=== PATIENT | female | born 1945 | race Caucasian/White ===

== ENCOUNTER 2017-06-24 16:37 | Emergency (ER) | payer MEDICAID ==
[2017-06-24 16:52] VITALS: RESP 18; TEMP 98.1
[2017-06-24] MEDS ORDERED: Sodium Chloride 0.9% 1,000 ML IV ONE (17:09)
--- NOTE | 2017-06-24 17:30 | CT ---
PROCEDURE: CT HEAD WITHOUT CONTRAST. HISTORY: dizziness COMPARISON: None available. TECHNIQUE: Axial computed tomography images were obtained through the head/brain without intravenous contrast. Radiation dose: Total exam DLP = 839.54 mGy-cm. This CT exam was performed using one or more of the following dose reduction techniques: Automated exposure control, adjustment of the mA and/or kV according to patient size, and/or use of iterative reconstruction technique. FINDINGS: Evaluation of posterior fossa limited due to patient motion artifact. HEMORRHAGE: No intracranial hemorrhage. BRAIN: No mass effect or edema. Minimal atrophy less than expected for patient age. No evidence of acute infarct. VENTRICLES: Unremarkable. No hydrocephalus. CALVARIUM: Unremarkable. PARANASAL SINUSES: Unremarkable as visualized. No significant inflammatory changes. MASTOID AIR CELLS: Unremarkable as visualized. No inflammatory changes. OTHER FINDINGS: None. IMPRESSION: No intracranial mass, hemorrhage or evidence acute infarct.
--- NOTE | 2017-06-24 17:39 | C.PDOC ---
History Of Present Illness 71 year old female, with past medical history of diabetes, hypertension, presents to Emergency Department for evaluation of dizziness for the past 2 weeks, which is worse in the morning and upon standing. Notes that she felt dizzy this morning after returning home, states she did not check her sugar level today. Patient states that she "passed out" for unknown length of time, states she was sitting in a chair during the episode but is not able to recall any other events. As per family, patient was seen by neurologist yesterday and was told everything was normal, no new medications were given. Patient also complaints of occasional numbness and tingling sensation to finger digits and toes. Also complains of occasional epigastric abdominal pain radiating to the chest for the past 3 months. Denies shortness of breath, visual change, vomiting , diarrhea, fever, chills, or any other associated symptoms at this time. Patient states her PMD is "not helping me", and "I feel as if I will ." Time Seen by Provider: 06/24/17 16:56 Chief Complaint (Nursing): Syncope History Per: Patient History/Exam Limitations: no limitations Onset/Duration Of Symptoms: Days Current Symptoms Are (Timing): Still Present Recent travel outside of the [place]: No Additional History Per: Patient Past Medical History Reviewed: Historical Data, Nursing Documentation, Vital Signs Vital Signs: Last Vital Signs Temp 98.1 F 06/24/17 16:47 Pulse 64 06/24/17 18:05 Resp 18 06/24/17 18:05 BP 159/54 H 06/24/17 18:05 Pulse Ox 98 06/26/17 07:27 - Medical History PMH: Arthritis, HTN, Hypercholesterolemia Family History: States: Unknown Family Hx - Social History Hx Alcohol Use: No Hx Substance Use: No - Immunization History Hx Tetanus Toxoid Vaccination: No Hx Influenza Vaccination: No Hx Pneumococcal Vaccination: No Review Of Systems Except As Marked, All Systems Reviewed And Found Negative. Constitutional: Negative for: Fever, Chills Eyes: Negative for: Vision Change Cardiovascular: Positive for: Chest Pain. Negative for: Palpitations, Light Headedness Respiratory: Negative for: Cough, Shortness of Breath Gastrointestinal: Positive for: Nausea, Abdominal Pain. Negative for: Vomiting , Diarrhea, Constipation Genitourinary: Negative for: Dysuria, Frequency, Hematuria Neurological: Positive for: Numbness (finger digits, toes), Dizziness. Negative for: Weakness, Headache Physical Exam - Physical Exam Appears: Non-toxic, No Acute Distress Skin: Normal Color, Warm, Dry Head: Atraumatic, Normacephalic Eye(s): bilateral: Normal Inspection, PERRL, EOMI, Other (no nystagmus) Oral Mucosa: Moist Neck: Normal ROM, Supple Chest: Symmetrical Cardiovascular: Rhythm Regular, No Murmur Respiratory: Normal Breath Sounds, No Rales, No Rhonchi, No Wheezing Gastrointestinal/Abdominal: Bowel Sounds (normal), Soft, Tenderness (mild epigastric), No Distention, No Guarding, No Rebound Back: No CVA Tenderness Extremity: Normal ROM, No Tenderness, No Pedal Edema, No Deformity, No Swelling Pulses: Left Radial: Normal Neurological/Psych: Oriented x3, Normal Speech, Normal Cranial Nerves, No Cerebellar Signs, Normal Motor, Normal Sensation, No Other (no focal deficits) Other Neurological Findings: No Facial Palsy ED Course And Treatment - Laboratory Results Result Diagrams: 06/24/17 17:42 06/24/17 17:42 Lab Interpretation: No Acute Changes ECG: Interpreted By Me, Viewed By Me O2 Sat by Pulse Oximetry: 98 (RA) Pulse Ox Interpretation: Normal - CT Scan/US Head CT Other Rad Studies (CT/US): Read By Radiologist, Radiology Report Reviewed CT/US Interpretation: Accession No. : [id number]. Patient Name / ID : GINNA SANCHEZ / [id number]. Exam Date : 06/24/2017 17:13:55 ( Approved ). Study Comment : Sex / Age : F / 71Y. Creator : Suzanne Farr. Dictator : Robert Zuñiga MD. Welder Repair : Blacksmith Apprentice : Robert Zuñiga MD. Approver2 : Report Date : 06/24/2017 17:25:09. My Comment : . PROCEDURE: CT HEAD WITHOUT CONTRAST. HISTORY: dizziness. COMPARISON: None available. TECHNIQUE: Axial computed tomography images were obtained through the head/brain without intravenous contrast. Radiation dose: Total exam DLP = 839.54 mGy-cm. This CT exam was performed using one or more of the following dose reduction techniques: Automated exposure control, adjustment of the mA and/ or kV according to patient size, and/or use of iterative reconstruction technique. FINDINGS: Evaluation of posterior fossa limited due to patient motion artifact. HEMORRHAGE: No intracranial hemorrhage. BRAIN: No mass effect or edema. Minimal atrophy less than expected for patient age. No evidence of acute infarct. VENTRICLES: Unremarkable. No hydrocephalus. CALVARIUM: Unremarkable. PARANASAL SINUSES: Unremarkable as visualized. No significant inflammatory changes. MASTOID AIR CELLS: Unremarkable as visualized. No inflammatory changes. OTHER FINDINGS: None. IMPRESSION: No intracranial mass, hemorrhage or evidence acute infarct. Medical Decision Making Medical Decision Making: Impression: Dizziness Plan: * Head CT * EKG * Blood work * Urinalysis * Reglan, IV fluids Progress and RE-eval: All labs reviewed and unremarkable, no leukocytosis, no hypoglycemia, no electrolyte abnormality. Head CT shows no intracranial abnormality. Patient was treated with IV NS and Reglan. Upon reevaluation patient reports feeling better , she is no longer feeling dizzy. She denies headache, visual complaints and no neuro deficits. Discussed results with patient, and copy of report was provided. Family at bedside and feel feels comfortable going home and patient will be discharged. Patient given follow up instructions and Rx. Instructed to return to ER if symptoms worsen or new symptoms arise. Disposition Counseled Patient/Family Regarding: Diagnosis, Need For Followup, Rx Given - Disposition Referrals: Gab Parham MD [Medical Doctor] - Disposition: HOME/ ROUTINE Disposition Time: 18:24 Condition: STABLE Additional Instructions: Toni por permitir que el equipo de [facility] sea parte de alejo cuidado hoy. Alejo proveedor fue el asistente mdico Champion. Estrellita laboratorios y tomograf a computarizada de la cody fueron normales. Negley Meclizine 1-2 pastillas cada 8 horas, segn sea necesario para los mareos. Nida un seguimiento con alejo mdico primario o neurlogo en 2 a 5 lo para diane evaluacin adicional. Regrese al departamento de emergencia en cualquier momento si los sntomas persisten o empeoran. Prescriptions: Meclizine [Meclizine*] 25 mg PO Q8 PRN #30 tab PRN Reason: Dizziness Instructions: Dizziness (ED) Forms: [employer] (Icelandic) Print Language: SRI LANKAN - POA Present On Arrival: None - Clinical Impression Clinical Impression: Dizziness, Anxiety about health - PA / PUBLIC HEALTH AIDES TEACHER / Resident Statement MD/DO has reviewed & agrees with the documentation as recorded. - Scribe Statement The provider has reviewed the documentation as recorded by the Scribe Oscar Payne All medical record entries made by the Scribe were at my direction and personally dictated by me. I have reviewed the chart and agree that the record accurately reflects my personal performance of the history, physical exam, medical decision making, and the department course for this patient. I have also personally directed, reviewed, and agree with the discharge instructions and disposition.
[2017-06-24 17:53] LABS: BASO % 0.5 % (0.0-2.0); EOS # 0.1 K/uL (0.0-0.7); EOS % 1.2 % (0.0-4.0); HEMATOCRIT 41.9 % (34.0-47.0); LYMPH # 1.5 K/uL (1.0-4.3); MEAN CELL VOLUME 92.2 fL (81.0-99.0); MEAN CORPUSCULAR HEMOGLOBIN 30.8 pg (27.0-31.0); MEAN CORPUSCULAR HGB CONC 33.4 g/dL (33.0-37.0); MEAN PLATELET VOLUME 10.5 fL (7.2-11.7); MONO # 0.5 K/uL (0.0-0.8); MONO % 6.7 % (0.0-10.0); NRBC % 0.1 % (0.0-2.0); RED CELL DISTRIBUTION WIDTH 13.1 % (11.5-14.5); WHITE BLOOD COUNT 7.7 K/uL (4.8-10.8)
[2017-06-24 17:58] LABS: CHLORIDE 103 mmol/L (98-107)
[2017-06-24 17:59] LABS: POTASSIUM 4.2 mmol/L (3.6-5.2); SODIUM 136 mmol/L (132-148)
[2017-06-24 18:01] LABS: ALB/GLOB RATIO 1.3 (1.0-2.1); ALKALINE PHOSPHATASE 101 U/L (38-126); ALT/SGPT 114 U/L (9-52); AST/SGOT 70 U/L (14-36); BILIRUBIN,TOTAL 0.6 mg/dL (0.2-1.3); BLOOD UREA NITROGEN 14 mg/dL (7-17); CARBON DIOXIDE 25 mmol/L (22-30); GFR AFRICAN-AMERICAN > 60; GLUCOSE,RANDOM 110 mg/dL (65-105); TOTAL PROTEIN 7.5 g/dL (6.3-8.3)
[2017-06-24 18:02] LABS: CALCIUM 8.9 mg/dl (8.6-10.4); CHOLESTEROL 149 mg/dL (0-199)
[2017-06-24 18:06] VITALS: BP 159/54; PULSE 64
[2017-06-24 18:16] VITALS: O2SAT 98
--- NOTE | 2017-06-27 21:29 | CARD ---
APPROVED REPORT EKG Measurement Heart [id number] <Conclusion> Normal sinus rhythm Pre-excatation syndrome. ([id number]) Abnormal ECG
== END 2017-06-24 18:45 | disposition home or self-care (01) ==
LOC: C.ER 16:37
DX: R42 Dizziness and giddiness (principal); F41.9 Anxiety disorder, unspecified
CPT/HCPCS: 70450; 80053; 80061; 82948; 83690; 84484; 85025; 85610; 85730; 93005; 96361; 96374; 99285; J2765; J7040

== ENCOUNTER 2018-11-09 07:04 | Outpatient (CLI) | payer MEDICAID | END 2018-11-09 07:05 | disposition home or self-care (01) | LOC: C.CARD 07:04 ==